=== PATIENT | female | born 1985 | race Caucasian/White ===

== ENCOUNTER 2022-04-14 08:27 | Inpatient (IN) ==
--- NOTE | 2022-04-14 08:37 | Emergency Department Note ---
HPI General Chief complaint: Alcohol Stated complaint: Withdrawl Time Seen by Provider: 04/14/22 08:36 Source: patient Mode of arrival: wheelchair Limitations: no limitations History of Present Illness HPI Narrative: Narrative: Patient is a 37-year-old female who presents to the emergency department due to concern for alcohol withdrawal. Patient states that her last drink was last night. She is unsure exactly what time. She states that at this time she is having visual hallucinations and shaking. She states that the hallucinations started this morning. She also endorses nausea. She denies any other symptoms at this time. Patient's counselor his present as well and states that she has had alcohol withdrawal in the past with similar symptoms. She states that they are working on getting her into treatment for alcohol use. They deny any other concerns at this time. Related Data Home Medications Medication Instructions Recorded Confirmed gabapentin 300 mg capsule 300 mg PO TID 03/15/21 01/15/22 Previous Rx's Medication Instructions Recorded chlordiazepoxide HCl 25 mg capsule 25 mg PO Q8H PRN alcohol 03/01/22 withdrawal #2 caps Allergies Allergy/AdvReac Type Severity Reaction Status Date / Time Penicillins Allergy Severe Hives Verified 04/14/22 08:32 Review of Systems ROS ROS Narrative: Narrative: Constitutional: Denies fever or weakness Eyes: Denies eye pain or vision change ENT ED: Denies throat pain, hearing loss or rhinorrhea Cardiovascular: Denies chest pain, dyspnea on exertion, orthopnea or edema Respiratory: Denies shortness of breath or cough Gastrointestinal: Denies abdominal pain, nausea, vomiting, diarrhea, constipation, hematochezia or melena Musculoskeletal: Denies back pain or myalgia Integumentary: Denies rash or lesions Neurological: Reports other (Tremors); Denies headache, weakness, numbness, confusion, abnormal gait or dizziness Psychiatric: Reports visual hallucinations; Denies anxiety, suicidal thoughts or homicidal thoughts Endocrine: Denies fatigue or polyuria Hematological/Lymphatic: Denies easy bleeding or easy bruising PFS Narrative Patient History Narrative: Narrative: Medical/Surgical/Family History All Active Problems (Updated 04/14/22 @ 12:43 by Moises Gray MD) Hematoma of right lower extremity (Acute) Alcohol withdrawal (Acute) Dysmenorrhea (Acute) Anxiety (Acute) Social History Smoking Status: Current every day smoker Exam Narrative Narrative: Narrative: General Limitations: no limitations General appearance: Present alert and in no apparent distress; Absent anxious, appears intoxicated or sleepy Head Head: Present atraumatic and normocephalic Eye Eye: Present PERRL and EOMI; Absent scleral icterus or nystagmus ENT ENT: Present mucous membranes moist; Absent nasal congestion Neck Neck: Present full ROM; Absent tenderness Chest Chest: Present normal inspection and symmetric chest wall rise; Absent tenderness Respiratory Respiratory: Present normal lung sounds bilaterally; Absent respiratory distress or accessory muscle use Cardiovascular Cardiovascular: Present regular rate, normal rhythm and normal heart sounds Adbominal Abdominal: Present soft and normal bowel sounds; Absent distention or tenderness Extremities Extremities: Present normal inspection and full ROM; Absent tenderness Back Back: Present normal inspection and full ROM; Absent tenderness Neurological Neurological: Present alert and oriented X3 Psychiatric Psychiatric: Present normal affect and normal mood Skin Skin: Present warm (WNL), dry and normal color Course Vital Signs Vital signs: Vital Signs Temperature 99.1 F H 04/14/22 08:29 Pulse Rate 117 H 04/14/22 08:29 Respiratory Rate 20 04/14/22 08:29 Blood Pressure 134/94 04/14/22 08:29 Pulse Oximetry (%) 99 04/14/22 08:29 Oxygen Delivery Method 04/14/22 08:29 Temperature 99.1 F H 04/14/22 08:29 Pulse Rate 105 H 04/14/22 11:05 Respiratory Rate 20 04/14/22 12:08 Blood Pressure 137/70 04/14/22 12:01 Pulse Oximetry (%) 99 04/14/22 11:05 Oxygen Delivery Method 04/14/22 08:29 [facility] MDM Narrative Medical decision making narrative: Narrative: Patient is a 37-year-old female with a history of alcohol abuse who presents to the emergency department due to concern for withdrawal. Given patient's history we have ordered labs and have placed orders for banana bag. Patient does state that she would like to quit drinking alcohol. Patient's labs are significant for methamphetamine on UDS and blood alcohol of 46. Given patient's symptoms and concerning history I have spoken to Dr. Alvarado who was agreed to see and evaluate patient for admission. Lab Data Result diagrams: 04/14/22 08:42 Labs: Lab Results 04/14/22 04/14/22 04/14/22 Range/Units 08:42 08:42 08:42 WBC 10.1 (4.5-11.0) K/mcL RBC 4.75 (3.59-5.38) M/mcL Hgb 13.9 (11.2-15.7) g/dL Hct 40.2 (34.1-44.9) % POC Hct (36-48) MCV 84.6 (80.0-100.0) fL MCH 29.3 (26.0-34.0) pg MCHC 34.6 (31.0-36.0) g/dL RDW 17.6 H (11.5-14.5) % Plt Count 416 (140-440) K/mcL MPV 9.2 (8.8-12.5) fL Immature Gran % (Auto) 0.2 (0.0-0.5) % Neut % (Auto) 76.6 (38.0-78.0) % Lymph % (Auto) 15.4 L (15.5-49.0) % [place] % (Auto) 6.5 (1.0-12.0) % Eos % (Auto) 0.6 (0.0-7.0) % Baso % (Auto) 0.7 (0.0-2.0) % Lymph # (Auto) 1.55 (1.50-4.80) K/mcL [place] # (Auto) 0.65 (0.10-0.90) K/mcL Eos # (Auto) 0.06 (0.00-0.70) K/mcL Baso # (Auto) 0.07 (0.00-0.30) K/mcL Immature Gran # 0.02 (0.00-0.05) K/mcl Absolute Neutrophils 7.71 (1.80-8.00) K/mcL POC Sodium (133-145) POC Potassium (3.3-5.1) POC Chloride (96-108) POC Total CO2 (22-30) POC BUN (6-20) POC Creatinine (0.6-1.2) POC Glucose (70-105) POC WB Ioniz Calcium (1.16-1.32) Total Bilirubin (0.1-1.0) mg/dL Direct Bilirubin (<0.3) mg/dL AST (<32) U/L ALT (<40) U/L Alkaline Phosphatase (39-117) U/L Total Protein (5.9-8.4) gm/dL Albumin (3.2-5.2) gm/dL Globulin (2.2-3.7) gm/dL Urine Opiates Screen None detected Ur Opiates Confirm TNP Ur Oxycodone Screen None detected U Oxycod/Oxymor Confirm TNP Urine Methadone Screen None detected Ur Methadone Confirm TNP Ur Barbiturates Screen None detected Ur Barbiturate Confirm TNP Ur Phencyclidine Scrn None detected Urine PCP Confirm TNP Ur Amphetamines Screen Suspect positive A U Benzodiazepines Scrn None detected Ur Benzodiazepine, Qnt TNP Urine Cocaine Screen None detected Urine Cocaine Confirm TNP U Cannabinoids Confirm TNP U Marijuana (THC) Screen None detected Ethyl Alcohol mg/dL 43.0 mg/dL Ethyl Alcohol g/dL 0.043 H (<0.010) gm/dL 04/14/22 04/14/22 Range/Units 09:02 09:05 WBC (4.5-11.0) K/mcL RBC (3.59-5.38) M/mcL Hgb (11.2-15.7) g/dL Hct (34.1-44.9) % POC Hct 43.0 (36-48) MCV (80.0-100.0) fL MCH (26.0-34.0) pg MCHC (31.0-36.0) g/dL RDW (11.5-14.5) % Plt Count (140-440) K/mcL MPV (8.8-12.5) fL Immature Gran % (Auto) (0.0-0.5) % Neut % (Auto) (38.0-78.0) % Lymph % (Auto) (15.5-49.0) % [place] % (Auto) (1.0-12.0) % Eos % (Auto) (0.0-7.0) % Baso % (Auto) (0.0-2.0) % Lymph # (Auto) (1.50-4.80) K/mcL [place] # (Auto) (0.10-0.90) K/mcL Eos # (Auto) (0.00-0.70) K/mcL Baso # (Auto) (0.00-0.30) K/mcL Immature Gran # (0.00-0.05) K/mcl Absolute Neutrophils (1.80-8.00) K/mcL POC Sodium 135 (133-145) POC Potassium 4.2 (3.3-5.1) POC Chloride 98 (96-108) POC Total CO2 21.0 L (22-30) POC BUN 5 L (6-20) POC Creatinine 0.9 (0.6-1.2) POC Glucose 94 (70-105) POC WB Ioniz Calcium 1.07 L (1.16-1.32) Total Bilirubin 1.0 (0.1-1.0) mg/dL Direct Bilirubin 0.2 (<0.3) mg/dL AST 76 H (<32) U/L ALT 55 H (<40) U/L Alkaline Phosphatase 61 (39-117) U/L Total Protein 7.8 (5.9-8.4) gm/dL Albumin 5.1 (3.2-5.2) gm/dL Globulin 2.7 (2.2-3.7) gm/dL Urine Opiates Screen Ur Opiates Confirm Ur Oxycodone Screen U Oxycod/Oxymor Confirm Urine Methadone Screen Ur Methadone Confirm Ur Barbiturates Screen Ur Barbiturate Confirm Ur Phencyclidine Scrn Urine PCP Confirm Ur Amphetamines Screen U Benzodiazepines Scrn Ur Benzodiazepine, Qnt Urine Cocaine Screen Urine Cocaine Confirm U Cannabinoids Confirm U Marijuana (THC) Screen Ethyl Alcohol mg/dL mg/dL Ethyl Alcohol g/dL (<0.010) gm/dL ED POC Tests ED POC Tests: HCG POC Results Negative EKG Data EKG #1: EKG attestation: Yes I reviewed and interpreted this EKG. EKG results narrative: Normal sinus rhythm with rate of 95, normal axis, [place] 132, QRS of 83, QTc of 459, T wave flattening in leads aVL and V2, enlarged P waves in leads II, III, and aVF suggestive of left atrial enlargement, and absence of ST elevation or depression. Discharge Plan Patient/Caregiver Discharge Instructions Pt seen by MANAGER OF TAX/PA only: No Clinical Impression: Alcohol withdrawal Patient Disposition: Xfer As Inpt ([facility]) Follow up with: No,PCP [Primary Care Provider] - Prescriptions: No Action gabapentin 300 mg capsule 300 mg PO TID chlordiazepoxide HCl 25 mg capsule 25 mg PO Q8H PRN (Reason: alcohol withdrawal) Qty: 2 0RF
[2022-04-14] MEDS ORDERED: ONDANSETRON 4 MG/2 ML VIAL IV ONE (08:52)
[2022-04-14] MEDS: 0.9 % SODIUM CHLORIDE 1,000 ML IV ONE ×2 (08:54→09:31)
[2022-04-14] MEDS ORDERED: DIAZEPAM 10 MG/2 ML SYRINGE IV PRN (08:58)
[2022-04-14] MEDS ORDERED: POTASSIUM CHLORIDE 20 MEQ, MAGNESIUM SULFATE 16.24 MEQ, THIAMINE 100 MG, MVI, ADULT NO.... IV SCH (09:00)
[2022-04-14 09:08] LABS: POC Calcium, Ionized 1.07 (1.16-1.32); POC Creatinine 0.9 (0.6-1.2); POC Potassium 4.2 (3.3-5.1)
[2022-04-14] MEDS ORDERED: ONDANSETRON 4 MG/2 ML VIAL ONE (09:08)
[2022-04-14 09:25] LABS: Basophils # (Auto) 0.07 K/mcL (0.00-0.30); Basophils % (Auto) 0.7 % (0.0-2.0); Eosinophils # (Auto) 0.06 K/mcL (0.00-0.70); Eosinophils % (Auto) 0.6 % (0.0-7.0); Hematocrit 40.2 % (34.1-44.9); Hemoglobin 13.9 g/dL (11.2-15.7); Lymphocytes # (Auto) 1.55 K/mcL (1.50-4.80); Lymphocytes % (Auto) 15.4 % (15.5-49.0); Mean Cell Volume 84.6 fL (80.0-100.0); Mean Corpuscular HGB Conc 34.6 g/dL (31.0-36.0); Mean Platelet Volume 9.2 fL (8.8-12.5); Monocytes # (Auto) 0.65 K/mcL (0.10-0.90); Monocytes % (Auto) 6.5 % (1.0-12.0); Neutrophils % (Auto) 76.6 % (38.0-78.0); Platelet Count 416 K/mcL (140-440); RBC 4.75 M/mcL (3.59-5.38); Red Cell Distribution Width 17.6 % (11.5-14.5); WBC 10.1 K/mcL (4.5-11.0)
[2022-04-14 09:40] LABS: ALT/SGPT 55 U/L (<40); AST/SGOT 76 U/L (<32); Albumin 5.1 gm/dL (3.2-5.2); Alkaline Phosphatase 61 U/L (39-117); Bilirubin,Direct 0.2 mg/dL (<0.3); Globulin 2.7 gm/dL (2.2-3.7)
[2022-04-14 09:46] LABS: Alcohol,Blood 0.043 gm/dL (<0.010)
[2022-04-14 11:05] LABS: Amphetamine Screen,Urine Suspect positive; Barbiturate Screen,Urine None detected; Benzodiazepines Screen,Urine None detected; Cannabinoid Screen,Urine None detected; Cocaine Screen,Urine None detected; Opiate Screen,Urine None detected; Oxycodone, Urine Screen None detected; Phencyclidine Screen,Urine None detected
--- NOTE | 2022-04-14 12:46 | Internal Med History&Physical ---
HPI History of Present Illness Patient information: Note initiated : 04/14/22 at 12:39 pm Service Date, if different from initiated Date: [] Patient: Kimmie Piedra a 37 y/o F admitted on for Withdrawl. Chief Complaint: [] History of present illness: Ms. Piedra is a 37 year old F Presents the ED with visual hallucinations and tremors. Patient has a history of alcohol abuse and last drink was last night. She has been working with her counselor to try to stop drinking. She also uses methamphetamine and last use yesterday. She was recently seen drowse a month ago for 3 to 5 days for severe alcohol withdrawals and she says DTs. She says she does have some diarrhea when she drinks heavily and that she has a history of bleeding ulcer and GERD and sometimes has dark stool when she drinks heavily. She also uses marijuana and smokes cigarettes. She says she drinks 30 pack of beers a day. Patient reports visual hallucinations and feeling shaky. Does complain of headaches but denies chest pain shortness of breath or abdominal pain. Review of Systems: Pertinent positives above. Denies fever/chills/nausea/vomiting/chest or abdominal pain/cough/dyspnea. Otherwise see above. PFSH PFSH All Active Problems (Updated 04/14/22 @ 12:43 by Moises Gray MD) Hematoma of right lower extremity (Acute) Alcohol withdrawal (Acute) Dysmenorrhea (Acute) Anxiety (Acute) Social History smoking status: Current every day smoker MEDS/ALLERGIES Home Medications and Allergies Home Medications Medication Instructions Recorded Confirmed Type gabapentin 300 mg capsule 300 mg PO TID 03/15/21 01/15/22 History chlordiazepoxide HCl 25 mg capsule 25 mg PO Q8H PRN alcohol 03/01/22 Rx withdrawal #2 caps Allergies Allergy/AdvReac Type Severity Reaction Status Date / Time Penicillins Allergy Severe Hives Verified 04/14/22 08:32 EXAM Constitutional Vitals: Temp Pulse Resp BP Pulse Ox O2 Del Method 99.1 F H 105 H 20 137/70 99 04/14/22 08:29 04/14/22 11:05 04/14/22 12:08 04/14/22 12:01 04/14/22 11:05 04/14/22 08:29 Exam: General: Alert, Awake, No acute Distress Eyes/N/T: EOMI, Head/Neck: neck supple, normocephalic atraumatic CV: Mildly tacky but regular, No murmurs, normal s1/s2 Pulm: Clear b/l, no wheezing/rhonchi/rales Abd: soft, nontender, +BS x4 Ext: no clubbing/cyanosis/edema Neuro: Alert, no focal deficits, moves all extremities, CN 2-12 grossly intact, sensations intact b/l upper/lower Skin: warm/dry DATA Data Completed and Pending Labs: Labs from last 24 hours 04/14/22 04/14/22 04/14/22 09:05 09:02 08:42 WBC 10.1 RBC 4.75 Hgb 13.9 Hct 40.2 POC Hct 43.0 MCV 84.6 MCH 29.3 MCHC 34.6 RDW 17.6 H Plt Count 416 MPV 9.2 Immature Gran % (Auto) 0.2 Neut % (Auto) 76.6 Lymph % (Auto) 15.4 L [place] % (Auto) 6.5 Eos % (Auto) 0.6 Baso % (Auto) 0.7 Lymph # (Auto) 1.55 [place] # (Auto) 0.65 Eos # (Auto) 0.06 Baso # (Auto) 0.07 Immature Gran # 0.02 Absolute Neutrophils 7.71 POC Sodium 135 POC Potassium 4.2 POC Chloride 98 POC Total CO2 21.0 L POC BUN 5 L POC Creatinine 0.9 POC Glucose 94 POC WB Ioniz Calcium 1.07 L Total Bilirubin 1.0 Direct Bilirubin 0.2 AST 76 H ALT 55 H Alkaline Phosphatase 61 Total Protein 7.8 Albumin 5.1 Globulin 2.7 Urine Opiates Screen Ur Opiates Confirm Ur Oxycodone Screen U Oxycod/Oxymor Confirm Urine Methadone Screen Ur Methadone Confirm Ur Barbiturates Screen Ur Barbiturate Confirm Ur Phencyclidine Scrn Urine PCP Confirm Ur Amphetamines Screen U Amphetamines Confirm U Benzodiazepines Scrn Ur Benzodiazepine, Qnt Urine Cocaine Screen Urine Cocaine Confirm U Cannabinoids Confirm U Marijuana (THC) Screen Ethyl Alcohol mg/dL Ethyl Alcohol g/dL 04/14/22 04/14/22 08:42 08:42 WBC RBC Hgb Hct POC Hct MCV MCH MCHC RDW Plt Count MPV Immature Gran % (Auto) Neut % (Auto) Lymph % (Auto) [place] % (Auto) Eos % (Auto) Baso % (Auto) Lymph # (Auto) [place] # (Auto) Eos # (Auto) Baso # (Auto) Immature Gran # Absolute Neutrophils POC Sodium POC Potassium POC Chloride POC Total CO2 POC BUN POC Creatinine POC Glucose POC WB Ioniz Calcium Total Bilirubin Direct Bilirubin AST ALT Alkaline Phosphatase Total Protein Albumin Globulin Urine Opiates Screen None detected Ur Opiates Confirm TNP Ur Oxycodone Screen None detected U Oxycod/Oxymor Confirm TNP Urine Methadone Screen None detected Ur Methadone Confirm TNP Ur Barbiturates Screen None detected Ur Barbiturate Confirm TNP Ur Phencyclidine Scrn None detected Urine PCP Confirm TNP Ur Amphetamines Screen Suspect positive A U Amphetamines Confirm Pending U Benzodiazepines Scrn None detected Ur Benzodiazepine, Qnt TNP Urine Cocaine Screen None detected Urine Cocaine Confirm TNP U Cannabinoids Confirm TNP U Marijuana (THC) Screen None detected Ethyl Alcohol mg/dL 43.0 Ethyl Alcohol g/dL 0.043 H A/P Narrative A/P Narrative: A: *Alcohol withdrawal w/hallucinations (h/o DT's): *Alcohol abuse: *Methamphetamine abuse: *Tobacco abuse: *GERD/PUD: *Transaminitis, mild: 2/2 above P: -CIWA, vitamins, prn benzo -close monitoring in PCU, suspect worsening before improvement, high risk for DT's -Smoking cessation counseling >3 minutes -Substance abuse cessation counseling -Follow-up with counselor for alcohol use disorder -ppx: SCD/Protonix Time Spent With Patient Time: Total time spent is greater than 50% in coordination of care (as documented) at patient's floor/unit and/or counseling patient:
[2022-04-14] MEDS ORDERED: MAGNESIUM SULFATE 2 GM/50 ML BAG IV PRN (15:05)
[2022-04-14] MEDS ORDERED: 0.9 % SODIUM CHLORIDE 10 ML SYRINGE IV SCH (15:05)
[2022-04-14] MEDS ORDERED: SENNOSIDES 1 TABLET PO PRN (15:05)
[2022-04-14] MEDS ORDERED: ONDANSETRON 4 MG/2 ML VIAL IV PRN (15:05)
[2022-04-14] MEDS ORDERED: POLYETHYLENE GLYCOL 3350 17 GM PACKET PO PRN (15:05)
[2022-04-14] MEDS ORDERED: IPRATROPIUM/ALBUTEROL 3 ML AMPUL.NEB NEB PRN (15:05)
[2022-04-14] MEDS ORDERED: POTASSIUM CHLORIDE 20 MEQ TABLET PO PRN ×2 (15:05)
[2022-04-14] MEDS ORDERED: POTASSIUM CHLORIDE 40 MEQ in DEXTROSE 5% IN WATER 500 ML IV PRN (15:05)
[2022-04-14] MEDS ORDERED: cloNIDine HCL 0.1 MG TABLET PO PRN (15:05)
[2022-04-14] MEDS: LORazepam 2 MG/ML VIAL IV PRN (15:16)
[2022-04-14] MEDS: 0.9 % SODIUM CHLORIDE 10 ML SYRINGE IV SCH ×2 (15:17→22:01)
[2022-04-14] MEDS: MULTIVIT,THER IRON,CA,FA & MIN 1 TABLET PO SCH (15:33)
[2022-04-14] MEDS: FOLIC ACID 1 MG TABLET PO SCH (15:33)
[2022-04-14] MEDS: THIAMINE 100 MG in 0.9 % SODIUM CHLORIDE 50 ML IV SCH (16:31)
--- NOTE | 2022-04-14 17:21 | EKG ---
TS Minor Care Test Date: 2022-04-14 Pat Name: Kimmie Piedra Department: ED Room: Gender: Female Hoseman: TONNY : 1985 Requested By: Moises Gray Order Number: [id number] Reading MD: Eloy Alvarez Measurements Intervals [place] Rate: 95 P: 82 WI: 132 QRS: 40 QRSD: 83 T: 64 QT: 365 QTc: 459 Interpretive Statements Sinus rhythm Left atrial enlargement Baseline wander in lead(s) V1 Electronically Signed On 04-14-2022 17:21:34 PDT by Eloy Alvarez /store/M0/[id number]
[2022-04-14] MEDS: DOCUSATE SODIUM 100 MG CAPSULE PO SCH (20:10)
[2022-04-15] MEDS: LORazepam 2 MG/ML VIAL IV PRN ×4 (01:19→20:45)
[2022-04-15] MEDS: 0.9 % SODIUM CHLORIDE 10 ML SYRINGE IV SCH ×3 (06:07→20:50)
[2022-04-15 06:53] LABS: Basophils # (Auto) 0.04 K/mcL (0.00-0.30); Basophils % (Auto) 0.7 % (0.0-2.0); Eosinophils # (Auto) 0.21 K/mcL (0.00-0.70); Eosinophils % (Auto) 3.5 % (0.0-7.0); Hematocrit 33.6 % (34.1-44.9); Lymphocytes % (Auto) 23.5 % (15.5-49.0); Mean Cell Volume 86.8 fL (80.0-100.0); Mean Corpuscular HGB Conc 32.7 g/dL (31.0-36.0); Mean Platelet Volume 9.2 fL (8.8-12.5); Monocytes # (Auto) 0.49 K/mcL (0.10-0.90); Monocytes % (Auto) 8.2 % (1.0-12.0); Neutrophils % (Auto) 63.9 % (38.0-78.0); Platelet Count 314 K/mcL (140-440); RBC 3.87 M/mcL (3.59-5.38); Red Cell Distribution Width 17.7 % (11.5-14.5)
[2022-04-15 07:10] LABS: ALT/SGPT 33 U/L (<40); AST/SGOT 36 U/L (<32); Albumin 3.9 gm/dL (3.2-5.2); Alkaline Phosphatase 47 U/L (39-117); Bilirubin,Direct < 0.2 mg/dL (0-0.3); Bilirubin,Total 0.6 mg/dL (0.1-1.0); Blood Urea Nitrogen 8 mg/dL (6-20); Calcium 8.8 mg/dL (8.6-10.4); Carbon Dioxide 26 mmol/L (22-30); Chloride 102 mmol/L (96-108); Glomerular Filtration Rate 82; Glucose 103 mg/dL (70-105); Lactate Dehydrogenase 164 U/L (135-225); Phosphorous 3.6 mg/dL (2.5-4.5); Triglycerides 54 mg/dL (<150)
[2022-04-15] MEDS: PANTOPRAZOLE 40 MG VIAL IV SCH (07:35)
--- NOTE | 2022-04-15 07:47 | Internal Med Progress Note ---
SUBJECTIVE Subjective Patient information: Note initiated : 04/15/22 at 7:45 am Service Date, if different from initiated Date: [] Patient: Kimmie Piedra a 37 y/o F admitted on 04/14/22 for Withdrawl. Chief Complaint: [] Interval history: History of present illness: Ms. Piedra is a 37 year old F Presents the ED with visual hallucinations and tremors. Patient has a history of alcohol abuse and last drink was last night. She has been working with her counselor to try to stop drinking. She also uses methamphetamine and last use yesterday. She was recently seen drowse a month ago for 3 to 5 days for severe alcohol withdrawals and she says DTs. She says she does have some diarrhea when she drinks heavily and that she has a history of bleeding ulcer and GERD and sometimes has dark stool when she drinks heavily. She also uses marijuana and smokes cigarettes. She says she drinks 30 pack of beers a day. Patient reports visual hallucinations and feeling shaky. Does complain of headaches but denies chest pain shortness of breath or abd ominal pain. 04/15 Patient tremulous. States hallucinations are gradually improving. Evaluated se veral times last night. Liver enzymes better. Review of Systems: denies headache/fever/chills/nausea/vomiting/chest or abdominal pain/cough/dyspnea/diarrhea. Otherwise see above. Constitutional Vitals: Vital Signs Temp Pulse Resp BP Pulse Ox O2 Del Method 98.2 F 64 12 115/82 100 04/15/22 04:01 04/15/22 06:00 04/15/22 06:00 04/15/22 06:00 04/15/22 06:00 04/15/22 06:00 Period Temp Pulse Resp BP Sys/Hinojosa Pulse Ox O2 Del Method O2 Flow Rate Last 24 Hr 98.1 F-99.1 F 64-117 12-24 111-150/54-130 97-100 Room Air-Room Air Intake and Output 04/14/22 04/15/22 04/15/22 21:59 05:59 13:59 Intake Total 1076 360 Output Total 950 500 Balance 1076 590 -500 Weight 74.435 kg Intake & Output: Intake & Output 04/14/22 04/15/22 04/15/22 21:59 05:59 13:59 Intake Total 1076 360 Output Total 950 500 Balance 1076 -590 -500 Weight 74.435 kg Intake: IV 1076 Potassium Chloride 20 Meq 1025 Magnesium Sulfate 16.24 Meq Vitamin B1 100 mg Infuvite Adult 10 ml In Sodium Chloride 0.9% 1,000 ml @ Wide Open IV . Q0M [facility] Rx#:[id number] Vitamin B1 100 mg In Sodium 51 Chloride 0.9% 50 ml @ 50 mls/hr IV DAILY [facility] Rx#:[id number] Oral 360 Output: Void Amount 950 500 Other: Meal snack Percent of Meal Consumed 100% Feeding Ability Assist with Tray Set Up Urine Appearance Clear Small Blood Clots Urine Color Medium Red Medium Red # Bowel Movements 0 Exam: General: Alert, Awake, No acute Distress Eyes/N/T: EOMI, Head/Neck: neck supple, CV: RRR, No murmurs, Pulm: Clear b/l, no wheezing/rhonchi/rales Abd: soft, nontender, +BS x4 Ext: no clubbing/cyanosis/edema Neuro: Alert, no focal deficits, moves all extremities, tremulous Skin: warm/dry OBJ DATA Labs CBC & Chem 7: 04/15/22 04:54 04/15/22 04:54 Labs: Abnormal Lab Results 04/15/22 04/15/22 04/14/22 04:54 04:54 09:05 Hgb 11.0 L Hct 33.6 L RDW 17.7 H Lymph % (Auto) Lymph # (Auto) 1.40 L POC Total CO2 21.0 L POC BUN 5 L POC WB Ioniz Calcium 1.07 L GGT 57 H AST 36 H ALT Globulin 2.0 L Ur Amphetamines Screen Ethyl Alcohol g/dL 04/14/22 04/14/22 04/14/22 09:02 08:42 08:42 Hgb Hct RDW 17.6 H Lymph % (Auto) 15.4 L Lymph # (Auto) POC Total CO2 POC BUN POC WB Ioniz Calcium GGT AST 76 H ALT 55 H Globulin Ur Amphetamines Screen Ethyl Alcohol g/dL 0.043 H 04/14/22 08:42 Hgb Hct RDW Lymph % (Auto) Lymph # (Auto) POC Total CO2 POC BUN POC WB Ioniz Calcium GGT AST ALT Globulin Ur Amphetamines Screen Suspect positive A Ethyl Alcohol g/dL Meds: Medications Acetaminophen (Acetaminophen 325 Mg Tablet) 650 mg PO Q6HP PRN; Protocol PRN Reason: Per Pain Protocol/Fever > 101 Albuterol/Ipratropium (Ipratropium/Albuterol 3 Ml Ampul.Neb) 3 ml NEB Q4HP PRN PRN Reason: Shortness Of Breath Chlordiazepoxide HCl (Chlordiazepoxide 25 Mg Capsule) 25 mg PO UD PRN; Protocol PRN Reason: Alcohol Withdrawal/Assess CIWA Clonidine HCl (Clonidine Hcl 0.1 Mg Tablet) 0.1 mg PO Q4HP PRN PRN Reason: ALC Docusate Sodium (Docusate Sodium 100 Mg Capsule) 100 mg PO BID [facility] Last Admin: 04/14/22 20:10 Dose: Not Given Folic Acid (Folic Acid 1 Mg Tablet) 1 mg PO DAILY [facility] Last Admin: 04/14/22 15:33 Dose: 1 mg Potassium Chloride 40 meq/ (Dextrose) 520 mls @ 130 mls/hr IV UD PRN PRN Reason: Potassium < 3 Magnesium Sulfate (Magnesium Sulfate) 2 gm in 50 mls @ 50 mls/hr IV UD PRN PRN Reason: Magnesium </= 1.6 Thiamine HCl 100 mg/ Sodium (Chloride) 51 mls @ 50 mls/hr IV DAILY [facility] Last Infusion: 04/14/22 17:39 Dose: Infused Iron Carb/Multivit/Converse/Folic Acid (Multivit,Ther Iron,Ca,Fa & Min 1 Tablet) 1 tab PO DAILY [facility] Last Admin: 04/14/22 15:33 Dose: 1 tab Lorazepam (Lorazepam 2 Mg/Ml Vial) 0 mg IV UD PRN; Protocol PRN Reason: Alcohol Withdrawal/Assess CIWA Last Admin: 04/15/22 01:19 Dose: 2 mg Ondansetron HCl (Ondansetron 4 Mg/2 Ml Vial) 4 mg IV Q4HP PRN PRN Reason: Nausea And Vomiting Pantoprazole Sodium (Pantoprazole 40 Mg Vial) 40 mg IV QAMAC [facility] Last Admin: 04/15/22 07:35 Dose: 40 mg Polyethylene Glycol (Polyethylene Glycol 3350 17 Gm Packet) 17 gm PO DAILYP PRN PRN Reason: Constipation Potassium Chloride (Potassium Chloride 20 Meq Tablet) 40 meq PO UD PRN PRN Reason: Potssium is 3-3.5 Potassium Chloride (Potassium Chloride 20 Meq Tablet) 40 meq PO UD PRN PRN Reason: Potassium < 3 Senna (Sennosides 1 Tablet) 2 tab PO DAILYP PRN PRN Reason: Constipation Sodium Chloride (0.9 % Sodium Chloride 10 Ml Syringe) 10 ml IV Q8 ARIELLE Last Admin: 04/15/22 06:07 Dose: 10 ml A/P Narrative A/P Narrative: A: *Alcohol withdrawal w/hallucinations (h/o DT's): *Alcohol abuse: *Methamphetamine abuse: *Tobacco abuse: *GERD/PUD: *Transaminitis, mild: 2/2 above, improved P: -CIWA, vitamins, prn benzo -close monitoring in PCU, suspect worsening before improvement, high risk for DT's -Smoking cessation counseling minutes -Substance abuse cessation counseling -Follow-up with counselor for alcohol use disorder -ppx: SCD/Protonix Time Spent With Patient Time: Total time spent is greater than 50% in coordination of care (as documented) at patient's floor/unit and/or counseling patient: Total time spent with greater than 50% in coordination of care (as documented) at patient's floor/unit and/or counseling patient:: 25 - 35 minutes
[2022-04-15] MEDS: FOLIC ACID 1 MG TABLET PO SCH (08:55)
[2022-04-15] MEDS: ACETAMINOPHEN 325 MG TABLET PO PRN ×2 (08:55→19:31)
[2022-04-15] MEDS: THIAMINE 100 MG in 0.9 % SODIUM CHLORIDE 50 ML IV SCH (08:55)
[2022-04-15] MEDS: MULTIVIT,THER IRON,CA,FA & MIN 1 TABLET PO SCH (08:55)
[2022-04-15] MEDS: DOCUSATE SODIUM 100 MG CAPSULE PO SCH ×2 (09:05→20:50)
[2022-04-15] MEDS: chlordiazePOXIDE 25 MG CAPSULE PO PRN ×3 (10:52→14:14)
[2022-04-15] MEDS ORDERED: NICOTINE 21 MG PATCH TOPICAL SCH (14:00)
[2022-04-15] MEDS ORDERED: traZODone HCL 150 MG TABLET PO PRN (21:50)
[2022-04-15] MEDS: GABAPENTIN 300 MG CAPSULE PO SCH (22:14)
[2022-04-15] MEDS ORDERED: GABAPENTIN 300 MG CAPSULE ONE (22:17)
[2022-04-16] MEDS: 0.9 % SODIUM CHLORIDE 10 ML SYRINGE IV SCH ×3 (05:03→22:00)
[2022-04-16 06:26] LABS: ALT/SGPT 35 U/L (<40); AST/SGOT 42 U/L (<32); Albumin 3.7 gm/dL (3.2-5.2); Albumin/Globulin Ratio 1.8 (1.0-2.3); Alkaline Phosphatase 48 U/L (39-117); Bilirubin,Direct < 0.2 mg/dL (0-0.3); Bilirubin,Total 0.5 mg/dL (0.1-1.0); Blood Urea Nitrogen 6 mg/dL (6-20); Calcium 8.6 mg/dL (8.6-10.4); Carbon Dioxide 26 mmol/L (22-30); Chloride 101 mmol/L (96-108); Globulin 2.1 gm/dL (2.2-3.7); Glomerular Filtration Rate 82; Glucose 94 mg/dL (70-105); Lactate Dehydrogenase 153 U/L (135-225); Phosphorous 3.9 mg/dL (2.5-4.5); Triglycerides 47 mg/dL (<150); Uric Acid 5.1 mg/dL (2.5-8.0)
[2022-04-16] MEDS: PANTOPRAZOLE 40 MG VIAL IV SCH (07:40)
[2022-04-16] MEDS: chlordiazePOXIDE 25 MG CAPSULE PO PRN ×2 (07:50→21:04)
--- NOTE | 2022-04-16 08:50 | Internal Med Progress Note ---
SUBJECTIVE Subjective Patient information: Note initiated : 04/16/22 at 8:49 am Service Date, if different from initiated Date: [] Patient: Kimmie Piedra a 37 y/o F admitted on 04/14/22 for Withdrawl. Chief Complaint: [] Interval history: History of present illness: Ms. Piedra is a 37 year old F Presents the ED with visual hallucinations and tremors. Patient has a history of alcohol abuse and last drink was last night. She has been working with her counselor to try to stop drinking. She also uses methamphetamine and last use yesterday. She was recently seen drowse a month ago for 3 to 5 days for severe alcohol withdrawals and she says DTs. She says she does have some diarrhea when she drinks heavily and that she has a history of bleeding ulcer and GERD and sometimes has dark stool when she drinks heavily. She also uses marijuana and smokes cigarettes. She says she drinks 30 pack of beers a day. Patient reports visual hallucinations and feeling shaky. Does complain of headaches but denies chest pain shortness of breath or abd ominal pain. 04/15 Patient tremulous. States hallucinations are gradually improving. Evaluated se veral times last night. Liver enzymes better. 04/16 Patient required several doses of IV Ativan overnight. Patient does feel less tremulous but is quite groggy. Review of Systems: denies headache/fever/chills/nausea/vomiting/chest or abdominal pain/cough/dyspnea/diarrhea. Otherwise see above. Constitutional Vitals: Vital Signs Temp Pulse Resp BP Pulse Ox O2 Del Method 97.1 F 81 15 123/79 98 04/16/22 08:01 04/16/22 08:01 04/16/22 08:01 04/16/22 08:01 04/16/22 08:01 04/16/22 08:01 Period Temp Pulse Resp BP Sys/Hinojosa Pulse Ox O2 Del Method O2 Flow Rate Last 24 Hr 97.1 F-98.5 F 65-91 - 98-135/61-121 96-100 Room Air-Room Air Intake and Output 04/15/22 04/16/22 04/16/22 21:59 05:59 13:59 Intake Total 518 300 480 Output Total 850 350 Balance -332 300 130 Weight 75.296 kg Intake & Output: Intake & Output 04/15/22 04/16/2204/16/22 21:59 05:59 13:59 Intake Total 518 300 480 Output Total 850 350 Balance -332 300 130 Weight 75.296 kg Intake: Oral 518 300 480 Output: Void Amount 850 350 Other: Meal Dinner Percent of Meal Consumed 75% Feeding Ability Independent Urine Appearance Small Blood Clots Clear Urine Color Blood Tinged Light Red Urine Odor Normal Stool Size Large Stool Color Brown Stool Consistency Soft Formed Exam: General: Drowsy, No acute Distress Eyes/N/T: EOMI, Head/Neck: neck supple, CV: RRR, No murmurs, Pulm: Clear b/l, no wheezing/rhonchi/rales Abd: soft, nontender, +BS x4 Ext: no clubbing/cyanosis/edema Neuro: Drowsy, no focal deficits, moves all extremities, Skin: warm/dry OBJ DATA Labs CBC & Chem 7: 04/15/22 04:54 04/16/22 05:11 Labs: Abnormal Lab Results 04/16/22 04/15/22 04/15/22 05:11 04:54 04:54 Hgb 11.0 L Hct 33.6 L RDW 17.7 H Lymph % (Auto) Lymph # (Auto) 1.40 L POC Total CO2 POC BUN POC WB Ioniz Calcium GGT 61 H 57 H AST 42 H 36 H ALT Total Protein 5.8 L Globulin 2.1 L 2.0 L Ur Amphetamines Screen Ethyl Alcohol g/dL 04/14/22 04/14/22 04/14/22 09:05 09:02 08:42 Hgb Hct RDW 17.6 H Lymph % (Auto) 15.4 L Lymph # (Auto) POC Total CO2 21.0 L POC BUN 5 L POC WB Ioniz Calcium 1.07 L GGT AST 76 H ALT 55 H Total Protein Globulin Ur Amphetamines Screen Ethyl Alcohol g/dL 04/14/22 04/14/22 08:42 08:42 Hgb Hct RDW Lymph % (Auto) Lymph # (Auto) POC Total CO2 POC BUN POC WB Ioniz Calcium GGT AST ALT Total Protein Globulin Ur Amphetamines Screen Suspect positive A Ethyl Alcohol g/dL 0.043 H Meds: Medications Acetaminophen (Acetaminophen 325 Mg Tablet) 650 mg PO Q6HP PRN; Protocol PRN Reason: Per Pain Protocol/Fever > 101 Last Admin: 04/15/22 19:31 Dose: 650 mg Albuterol/Ipratropium (Ipratropium/Albuterol 3 Ml Ampul.Neb) 3 ml NEB Q4HP PRN PRN Reason: Shortness Of Breath Chlordiazepoxide HCl (Chlordiazepoxide 25 Mg Capsule) 25 mg PO UD PRN; Protocol PRN Reason: Alcohol Withdrawal/Assess CIWA Last Admin: 04/16/22 07:50 Dose: 25 mg Clonidine HCl (Clonidine Hcl 0.1 Mg Tablet) 0.1 mg PO Q4HP PRN PRN Reason: ALC Docusate Sodium (Docusate Sodium 100 Mg Capsule) 100 mg PO BID [facility] Last Admin: 04/15/22 20:50 Dose: Not Given Folic Acid (Folic Acid 1 Mg Tablet) 1 mg PO DAILY [facility] Last Admin: 04/15/22 08:55 Dose: 1 mg Gabapentin (Gabapentin 300 Mg Capsule) 300 mg PO QID [facility] Last Admin: 04/15/22 22:14 Dose: 300 mg Potassium Chloride 40 meq/ (Dextrose) 520 mls @ 130 mls/hr IV UD PRN PRN Reason: Potassium < 3 Magnesium Sulfate (Magnesium Sulfate) 2 gm in 50 mls @ 50 mls/hr IV UD PRN PRN Reason: Magnesium </= 1.6 Thiamine HCl 100 mg/ Sodium (Chloride) 51 mls @ 50 mls/hr IV DAILY [facility] Last Infusion: 04/15/22 10:15 Dose: Infused Iron Carb/Multivit/[place]/Folic Acid (Multivit,Ther Iron,Ca,Fa & Min 1 Tablet) 1 tab PO DAILY [facility] Last Admin: 04/15/22 08:55 Dose: 1 tab Lorazepam (Lorazepam 2 Mg/Ml Vial) 0 mg IV UD PRN; Protocol PRN Reason: Alcohol Withdrawal/Assess CIWA Last Admin: 04/15/22 20:45 Dose: 2 mg Nicotine (Nicotine 21 Mg Patch) 21 mg TOPICAL DAILY@1000 [facility]ELLE Ondansetron HCl (Ondansetron 4 Mg/2 Ml Vial) 4 mg IV Q4HP PRN PRN Reason: Nausea And Vomiting Last Admin: 04/15/22 19:30 Dose: 4 mg Pantoprazole Sodium ([facility]op[facility] 40 Mg Vial) [facility] Last Admin: 04/16/22 07:40 Dose: 40 mg Polyethylene Glycol (Polyethylene Glycol 3350 17 Gm Packet) 17 gm PO DAILYP PRN PRN Reason: Constipation Potassium Chloride (Potassium Chloride 20 Meq Tablet) 40 meq PO UD PRN PRN Reason: Potssium is 3-3.5 Potassium Chloride (Potassium Chloride 20 Meq Tablet) 40 meq PO UD PRN PRN Reason: Potassium < 3 Senna (Sennosides 1 Tablet) 2 tab PO DAILYP PRN PRN Reason: Constipation Sodium Chloride (0.9 % Sodium Chloride 10 Ml Syringe) 10 ml IV Q8 [facility]EL[facility] Last Admin: 04/16/22 05:03 Dose: 10 ml Trazodone HCl (Trazodone Hcl 150 Mg Tablet) 150 mg PO HSP PRN PRN Reason: Insomnia A/P Narrative A/P Narrative: A: *Alcohol withdrawal w/hallucinations (h/o DT's): *Alcohol abuse: *Methamphetamine abuse: *Tobacco abuse: *GERD/PUD: *Transaminitis, mild: 2/2 above, improved P: -CIWA, vitamins, prn benzo -close monitoring in PCU, suspect worsening before improvement -Smoking cessation counseling -Substance abuse cessation counseling -Follow-up with counselor for alcohol use disorder -ppx: SCD/Protonix Time Spent With Patient Time: Total time spent is greater than 50% in coordination of care (as documented) at patient's floor/unit and/or counseling patient: Total time spent with greater than 50% in coordination of care (as documented) at patient's floor/unit and/or counseling patient:: 25 - 35 minutes
[2022-04-16] MEDS: FOLIC ACID 1 MG TABLET PO SCH (09:32)
[2022-04-16] MEDS: MULTIVIT,THER IRON,CA,FA & MIN 1 TABLET PO SCH (09:32)
[2022-04-16] MEDS: GABAPENTIN 300 MG CAPSULE PO SCH ×4 (09:32→21:04)
[2022-04-16] MEDS: NICOTINE 21 MG PATCH TOPICAL SCH (09:33)
[2022-04-16] MEDS: DOCUSATE SODIUM 100 MG CAPSULE PO SCH ×2 (09:33→20:29)
[2022-04-16] MEDS: THIAMINE 100 MG in 0.9 % SODIUM CHLORIDE 50 ML IV SCH (09:33)
[2022-04-16] MEDS: LORazepam 2 MG/ML VIAL IV PRN ×3 (09:41→18:04)
[2022-04-17] MEDS: LORazepam 2 MG/ML VIAL IV PRN (01:15)
[2022-04-17] MEDS: 0.9 % SODIUM CHLORIDE 10 ML SYRINGE IV SCH (05:37)
--- NOTE | 2022-04-17 07:36 | Internal Med Progress Note ---
SUBJECTIVE Subjective Patient information: Note initiated : 04/17/22 at 7:35 am Service Date, if different from initiated Date: [] Patient: Kimmie Piedra a 37 y/o F admitted on 04/14/22 for Withdrawl. Chief Complaint: [] Interval history: History of present illness: Ms. Piedra is a 37 year old F Presents the ED with visual hallucinations and tremors. Patient has a history of alcohol abuse and last drink was last night. She has been working with her counselor to try to stop drinking. She also uses methamphetamine and last use yesterday. She was recently seen drowse a month ago for 3 to 5 days for severe alcohol withdrawals and she says DTs. She says she does have some diarrhea when she drinks heavily and that she has a history of bleeding ulcer and GERD and sometimes has dark stool when she drinks heavily. She also uses marijuana and smokes cigarettes. She says she drinks 30 pack of beers a day. Patient reports visual hallucinations and feeling shaky. Does complain of headaches but denies chest pain shortness of breath or abd ominal pain. 04/15 Patient tremulous. States hallucinations are gradually improving. Evaluated se veral times last night. Liver enzymes better. 04/16 Patient required several doses of IV Ativan overnight. Patient does feel less tremulous but is quite groggy. 04/17 Required several doses of Ativan last night. Not as sedated this morning. Still tremulous but improving. Does have high anxiety. She has been on BuSpar in the past but did not make any difference she is on gabapentin but she says that does not really help. Review of Systems: denies headache/fever/chills/nausea/vomiting/chest or abdominal pain/cough/dyspnea/diarrhea. Otherwise see above. Constitutional Vitals: Vital Signs Temp Pulse Resp BP Pulse Ox O2 Del Method 97.9 F 71 20 102/65 97 04/17/22 04:00 04/17/22 02:00 04/17/22 04:50 04/17/22 04:00 04/17/22 02:00 04/17/22 04:00 Period Temp Pulse Resp BP Sys/Hinojosa Pulse Ox O2 Del Method O2 Flow Rate Last 24 Hr 97.1 F-98.8 F 71-94 15-26 88-133/60-109 91-100 Room Air-Room Air Intake and Output 04/16/22 04/17/22 04/17/22 21:59 05:59 13:59 Intake Total 620 300 Output Total 1250 1125 Balance -630 -825 Weight 74.933 kg Intake & Output: Intake & Output 04/16/22 04/17/22 04/17/22 21:59 05:59 13:59 Intake Total 620 300 Output Total 1250 1125 Balance -630 -825 Weight 74.933 kg Intake: Oral 620 300 Output: Void Amount 1250 1125 Other: Meal Dinner Percent of Meal Consumed 100% Feeding Ability Independent Urine Appearance Clear Clear Urine Color Pale Light Diandra Urine Odor Normal Exam: General: Drowsy, No acute Distress Eyes/N/T: EOMI, Head/Neck: neck supple, CV: RRR, No murmurs, Pulm: Clear b/l, no wheezing/rhonchi/rales Abd: soft, nontender, +BS x4 Ext: no clubbing/cyanosis/edema Neuro: Drowsy, no focal deficits, moves all extremities, mild tremors hands Skin: warm/dry OBJ DATA Labs CBC & Chem 7: 04/15/22 04:54 04/16/22 05:11 Labs: Abnormal Lab Results 04/16/22 04/15/22 04/15/22 05:11 04:54 04:54 Hgb 11.0 L Hct 33.6 L RDW 17.7 H Lymph % (Auto) Lymph # (Auto) 1.40 L POC Total CO2 POC BUN POC WB Ioniz Calcium GGT 61 H 57 H AST 42 H 36 H ALT Total Protein 5.8 L Globulin 2.1 L 2.0 L Ur Amphetamines Screen Ethyl Alcohol g/dL 04/14/22 04/14/22 04/14/22 09:05 09:02 08:42 Hgb Hct RDW 17.6 H Lymph % (Auto) 15.4 L Lymph # (Auto) POC Total CO2 21.0 L POC BUN 5 L POC WB Ioniz Calcium 1.07 L GGT AST 76 H ALT 55 H Total Protein Globulin Ur Amphetamines Screen Ethyl Alcohol g/dL 04/14/22 04/14/22 08:42 08:42 Hgb Hct RDW Lymph % (Auto) Lymph # (Auto) POC Total CO2 POC BUN POC WB Ioniz Calcium GGT AST ALT Total Protein Globulin Ur Amphetamines Screen Suspect positive A Ethyl Alcohol g/dL 0.043 H Meds: Medications Acetaminophen (Acetaminophen 325 Mg Tablet) 650 mg PO Q6HP PRN; Protocol PRN Reason: Per Pain Protocol/Fever > 101 Last Admin: 04/15/22 19:31 Dose: 650 mg Albuterol/Ipratropium (Ipratropium/Albuterol 3 Ml Ampul.Neb) 3 ml NEB Q4HP PRN PRN Reason: Shortness Of Breath Chlordiazepoxide HCl (Chlordiazepoxide 25 Mg Capsule) 25 mg PO UD PRN; Protocol PRN Reason: Alcohol Withdrawal/Assess CIWA Last Admin: 04/16/22 21:04 Dose: 25 mg Clonidine HCl (Clonidine Hcl 0.1 Mg Tablet) 0.1 mg PO Q4HP PRN PRN Reason: ALC Docusate Sodium (Docusate Sodium 100 Mg Capsule) 100 mg PO BID [facility] Last Admin: 04/16/22 20:29 Dose: Not Given Folic Acid (Folic Acid 1 Mg Tablet) 1 mg PO DAILY [facility] Last Admin: 04/16/22 09:32 Dose: 1 mg Gabapentin (Gabapentin 300 Mg Capsule) 300 mg PO QID [facility] Last Admin: 04/16/22 21:04 Dose: 300 mg Potassium Chloride 40 meq/ (Dextrose) 520 mls @ 130 mls/hr IV UD PRN PRN Reason: Potassium < 3 Magnesium Sulfate (Magnesium Sulfate) 2 gm in 50 mls @ 50 mls/hr IV UD PRN PRN Reason: Magnesium </= 1.6 Thiamine HCl 100 mg/ Sodium (Chloride) 51 mls @ 50 mls/hr IV DAILY [facility] Last Infusion: 04/16/22 13:12 Dose: Infused Iron Carb/Multivit/[place]/Folic Acid (Multivit,Ther Iron,Ca,Fa & Min 1 Tablet) 1 tab PO DAILY [facility] Last Admin: 04/16/22 09:32 Dose: 1 tab Lorazepam (Lorazepam 2 Mg/Ml Vial) 0 mg IV UD PRN; Protocol PRN Reason: Alcohol Withdrawal/Assess CIWA Last Admin: 04/17/22 01:15 Dose: 2 mg Nicotine (Nicotine 21 Mg Patch) 21 mg TOPICAL DAILY@1000 [facility]EL[facility] Last Admin: 04/16/22 09:33 Dose: 21 mg Ondansetron HCl (Ondansetron 4 Mg/2 Ml Vial) 4 mg IV Q4HP PRN PRN Reason: Nausea And Vomiting Last Admin: 04/15/22 19:30 Dose: 4 mg Pantoprazole Sodium (Pantoprazole 40 Mg Vial) 40 mg IV QAMAC [facility] Last Admin: 04/16/22 07:40 Dose: 40 mg Polyethylene Glycol (Polyethylene Glycol 3350 17 Gm Packet) 17 gm PO DAILYP PRN PRN Reason: Constipation Potassium Chloride (Potassium Chloride 20 Meq Tablet) 40 meq PO UD PRN PRN Reason: Potssium is 3-3.5 Potassium Chloride (Potassium Chloride 20 Meq Tablet) 40 meq PO UD PRN PRN Reason: Potassium < 3 Senna (Sennosides 1 Tablet) 2 tab PO DAILYP PRN PRN Reason: Constipation Sodium Chloride (0.9 % Sodium Chloride 10 Ml Syringe) 10 ml IV Q8 [facility] Last Admin: 04/17/22 05:37 Dose: 10 ml Trazodone HCl (Trazodone Hcl 150 Mg Tablet) 150 mg PO HSP PRN PRN Reason: Insomnia A/P Narrative A/P Narrative: A: *Alcohol withdrawal w/hallucinations (h/o DT's): *Alcohol abuse: *Methamphetamine abuse: *Tobacco abuse: *GERD/PUD: *Transaminitis, mild: 2/2 above, improved P: -CIWA, vitamins, prn benzo -closing monitoring -Smoking cessation counseling -Substance abuse cessation counseling -Follow-up with counselor for alcohol use disorder -ppx: SCD/Protonix Time Spent With Patient Time: Total time spent is greater than 50% in coordination of care (as documented) at patient's floor/unit and/or counseling patient: Total time spent with greater than 50% in coordination of care (as documented) at patient's floor/unit and/or counseling patient:: 25 - 35 minutes
[2022-04-17] MEDS: DOCUSATE SODIUM 100 MG CAPSULE PO SCH (08:00)
[2022-04-17] MEDS: GABAPENTIN 300 MG CAPSULE PO SCH (08:00)
[2022-04-17] MEDS: MULTIVIT,THER IRON,CA,FA & MIN 1 TABLET PO SCH (08:00)
[2022-04-17] MEDS: FOLIC ACID 1 MG TABLET PO SCH (08:00)
[2022-04-17] MEDS: PANTOPRAZOLE 40 MG VIAL IV SCH (08:00)
[2022-04-17] MEDS ORDERED: LORazepam 2 MG/ML VIAL IV PRN (08:32)
[2022-04-17] MEDS: THIAMINE 100 MG in 0.9 % SODIUM CHLORIDE 50 ML IV SCH (09:01)
--- NOTE | 2022-04-17 09:51 | Discharge Summary ---
Discharge Provider Provider IMPORTANT FOLLOW-UP INFORMATION FOR PCP: Patient information: Note initiated : 04/17/22 at 9:50 am Service Date, if different from initiated Date: [] Patient: Kimmie Piedra a 37 y/o F admitted on 04/14/22 for Withdrawl. Chief Complaint: [] Date of admission: 04/14/22 14:49 Discharge date: 04/17/22 Primary care physician: PCP No Consults: 04/14/22 Consult to Physician [CONS] Stat Comment: Consulting Provider: Mukesh Snider Reason For Exam: Physician to Consult COURSE Hospital Course Hospital course: History of present illness: Ms. Piedra is a 37 year old F Presents the ED with visual hallucinations and tremors. Patient has a history of alcohol abuse and last drink was last night. She has been working with her counselor to try to stop drinking. She also uses methamphetamine and last use yesterday. She was recently seen drowse a month ago for 3 to 5 days for severe alcohol withdrawals and she says DTs. She says she does have some diarrhea when she drinks heavily and that she has a history of bleeding ulcer and GERD and sometimes has dark stool when she drinks heavily. She also uses marijuana and smokes cigarettes. She says she drinks 30 pack of beers a day. Patient reports visual hallucinations and feeling shaky. Does complain of headaches but denies chest pain shortness of breath or abdominal pain. 04/15 Patient tremulous. States hallucinations are gradually improving. Evaluated several times last night. Liver enzymes better. 04/16 Patient required several doses of IV Ativan overnight. Patient does feel less tremulous but is quite groggy. 04/17 Required several doses of Ativan last night. Not as sedated this morning. Still tremulous but improving. Does have high anxiety. She has been on BuSpar in the past but did not make any difference she is on gabapentin but she says that does not really help. Patient feeling much better. She does have anxiety which I think is her underlying issue now. I put a referral in for her behavioral health team. Patient to follow-up close with PCP and psychiatry. A: *Alcohol withdrawal w/hallucinations (h/o DT's): *Alcohol abuse: *Methamphetamine abuse: *Tobacco abuse: *GERD/PUD: *Transaminitis, mild: 2/2 above, improved P: -Follow-up with counselor for alcohol use disorder Discharge diagnosis: Alcohol withdrawal alcohol abuse methamphetamine abuse Secondary discharge diagnosis: Tobacco abuse GERD transaminitis Time Spent with Patient Time attestation: Total time spent providing and/or coordinating discharge services: Time spent: Greater than 30 minutes EXAM Constitutional Vitals: Temp Pulse Resp BP Pulse Ox O2 Del Method 98.1 F 98 H 20 117/74 96 04/17/22 08:00 04/17/22 08:00 04/17/22 08:01 04/17/22 08:01 04/17/22 08:00 04/17/22 08:00 Discharge Plan Patient/Caregiver Discharge Instructions Activity: increase activity as tolerated Diet: Regular Diet Activity Restrictions/Additional Instructions: Follow-up with PCP in 3 to 7 days. Follow-up with counselor for alcohol use disorder. Prescriptions: New acamprosate 333 mg tablet,delayed release (DR/EC) 666 mg PO TID Qty: 90 0RF Continued gabapentin 300 mg capsule 300 mg PO QID chlordiazepoxide HCl 25 mg capsule 25 mg PO Q8H PRN (Reason: alcohol withdrawal) Qty: 2 0RF pantoprazole 40 mg tablet,delayed release (DR/EC) 1 tab PO QDAY trazodone 150 mg Tablet 150 mg PO QHS PRN (Reason: Insomnia) Discontinued cefdinir 300 mg capsule 1 cap PO Q12 Other Ambulatory Orders: Primary Care Provider - Referral (NOW) Timeframe: [id number] Location: None Selected Ordered By: Moises Gray Follow Up Plan Patient Disposition: Home, Self-Care Overall status at discharge: patient is progressing back to baseline Discharge Orders: Discharge Order (Routine); Ordered 04/17/22 Ordered By: Mukesh Snider
[2022-04-17] MEDS: NICOTINE 21 MG PATCH TOPICAL SCH (10:35)
== END 2022-04-17 12:55 | disposition home or self-care (01) | DRG 897 ==
LOC: ED 08:27 → ICU 14:49
PROVIDERS: ADMIT Internal Medicine; ATTEND Internal Medicine